=== PATIENT | female | born 1940 | race Hispanic/Latino ===

== ENCOUNTER 2016-04-05 05:55 | Day surgery (SDC) | payer MEDICARE, OTHER ==
[2016-04-05] MEDS ORDERED: ECOTRIN PO ONE (06:16)
[2016-04-05] MEDS ORDERED: NACL 0.9% 500 ML 500 ML IV SCH (07:00)
[2016-04-05 07:12] LABS: Basophils % (Auto) 1.2 % (0.0-1.8); Hematocrit 37.1 % (30.3-42.9); Hemoglobin 12.8 gm/dl (10.1-14.3); Mean Corpuscular HGB Conc 34 % (30-34); Mean Corpuscular Hemoglobin 31 pg (28-32); Mean Corpuscular Volume 91 fl (79-97); Platelet Count 262 K/mm3 (140-440); Red Cell Distribution Width 14.3 % (13.2-15.2); White Blood Count 6.2 K/mm3 (4.5-11.0)
[2016-04-05 07:14] LABS: BUN/Creatinine Ratio 13.75; Blood Urea Nitrogen 11 mg/dL (7-17); Calcium 9.2 mg/dL (8.4-10.2); Carbon Dioxide 27 mmol/L (22-30); Chloride 103.1 mmol/L (98-107); Glucose 109 mg/dL (65-100); Potassium 4.4 mmol/L (3.6-5.0); Sodium 141 mmol/L (137-145)
[2016-04-05 07:30] LABS: Anion Gap 15 mmol/L
[2016-04-05] MEDS ORDERED: HEPARIN/NS 5000 UNIT/500ML(CATH LAB) 1,000 ML IR ONE (07:59)
[2016-04-05] MEDS ORDERED: XYLOCAINE 2% INFILTRATI ONE (07:59)
[2016-04-05] MEDS: SUBLIMAZE ONE ×2 (08:11→08:21)
[2016-04-05] MEDS: VERSED ONE ×2 (08:11→08:22)
[2016-04-05] MEDS: CALAN ONE ×2 (08:12→08:20)
[2016-04-05] MEDS: HEPARIN 10,000 UNITS/10 ML ONE ×2 (08:12→08:20)
--- NOTE | 2016-04-05 09:05 | Short Stay Summary ---
Short Stay Documentation - Allergies and Medications Current Medications: Allergies codeine Allergy (Verified 04/05/16 06:12) HEAVINESS IN CHEST latex Allergy (Verified 04/05/16 06:12) Rash Penicillins Allergy (Verified 04/05/16 06:12) Rash Home Medications Medication Instructions Recorded Confirmed Last Taken Type Methotrexate Sodium [Methotrexate] 90 mg PO QWEEK 04/05/16 04/05/16 04/01/16 History Montelukast [Singulair] 10 mg PO QPM 04/05/16 04/05/16 04/04/16 History Raloxifene HCl [Evista] 60 mg PO DAILY 04/05/16 04/05/16 04/04/16 History Tizanidine HCl [Tizanidine HCl] 2 mg PO PRN 04/05/16 04/05/16 04/04/16 History Trazodone HCl [traZODone] 50 mg PO QPM 04/05/16 04/05/16 04/04/16 History Active Medications Sodium Chloride (Nacl 0.9% 500 Ml) 500 mls @ 50 mls/hr IV DIRECT MARITZA Stop: 04/05/16 16:59 Last Admin: 04/05/16 06:47 Dose: 50 mls/hr
--- NOTE | 2016-04-05 10:50 | Cardiac Catherization Report ---
CARDIAC CATHETERIZATION INDICATION FOR PROCEDURE: The patient is a 76-year-old white female with history of chest pains of many years' duration, has positive nuclear imaging last year with mild anterior ischemia, continues to have anterior chest pain. She has underlying history of exertional dyspnea, history of asthma. Because of persistent chest pains and abnormal stress thallium, she is scheduled for cardiac catheterization for definitive diagnosis and treatment. The patient is aware of the procedure, potential complications, and the alternatives of therapy available. DESCRIPTION OF PROCEDURE: The patient was brought to the catheterization laboratory in a fasting condition. The right wrist area and forearm thoroughly cleansed with Betadine solution. Sterile drapes were applied. Local anesthesia was achieved using 2% Xylocaine. Right radial artery puncture was made using 21-gauge arterial puncture needle. Subsequently, a 5-Nepalese sheath was introduced. The patient received 5 mg of intra-arterial verapamil and 3000 units of intravenous heparin. Subsequently, 5-Nepalese multipurpose catheter was used to obtain the angiograms of the left ventricle done in NIEVES projection and also angiograms of the right coronary artery in multiple views. Initially, 5-Nepalese TIG catheter and subsequently 5-Nepalese JL3.5 catheter was used to engage the left coronary artery. After obtaining the angiograms of the left coronary artery in multiple views, catheter and sheath were removed. Good hemostasis was achieved with pressure bandage. The patient tolerated the procedure well. No untoward complications were noted. Following findings were noted. HEMODYNAMICS: 1. Opening aortic pressure 155/72. Left ventricular pressure 155/30. No gradient across the aortic valve. Estimated ejection fraction 55%. 2. Left ventriculogram done in NIEVES projection using hand injection showed normal sized left ventricle with normal contractility. Mitral regurgitation could not be evaluated because of limited amount of dye injected. 3. Right coronary artery dominant vessel arises from right coronary cusp somewhat anteriorly. Dominant vessel and angiographically smooth and normal. 4. Left coronary artery arises normally from left coronary cusp. Left main is short, smooth, and normal. LAD and its branches, circumflex artery and its branches are angiographically smooth but tortuous. Overall, angiographically, coronary anatomy appears to be normal. FINAL IMPRESSION: 1. Normal sized left ventricle with normal contractility and elevated end diastolic pressure. 2. Normal coronary anatomy with tortuosity noted. At this time, no significant coronary artery disease noted angiographically to explain her symptoms. We will continue risk factor modification. The patient tolerated the procedure well. No untoward complications were noted. The findings were explained to the patient and her daughter. Will be monitored in outpatient area. JOB# [id number]/[id number]
[2016-04-05 11:57] VITALS: BP 131/86
== END 2016-04-05 12:15 | disposition home or self-care (01) ==
LOC: OPU 05:55
PROVIDERS: ATTEND Internal Medicine
DX: R94.39 Abnormal result of other cardiovascular function study (principal); R07.9 Chest pain, unspecified; J45.909 Unspecified asthma, uncomplicated; E66.9 Obesity, unspecified; Z68.36 Body mass index [BMI] 36.0-36.9, adult; Z82.49 Family history of ischemic heart disease and other diseases of the circulatory system
CPT/HCPCS: 36415; 80048; 85025; 85730; 93005; 93010; 93458; C1769; C1887; C1894; J1644; J2250; J3010; J7040; Q9967